=== PATIENT | male | born 1935 | race Caucasian/White ===

== ENCOUNTER → 2017-07-06 | Outpatient (CLI) | payer OTHER ==
[~2017-07-06] MED LIST: APRACLONIDINE 1% 0.1 ML OPH; PHENYLephrine 10% 5 ML OPH; PROPARACAINE 0.5% 15 ML OPH; TROPICAMIDE 1% 3 ML OPH
== END | disposition home or self-care (01) ==
LOC: RAD 10:12
DX: H26.9 Unspecified cataract (principal)
CPT/HCPCS: 66821